=== PATIENT | female | born 1995 | race Caucasian/White ===

== ENCOUNTER → 2016-07-12 | Outpatient (CLI) | payer BC ==
[~2016-07-12] MED LIST: BCPILLS PO
== END | disposition home or self-care (01) ==
LOC: C.PAPS 15:58
PROVIDERS: ATTEND Obstetrics & Gynecology
DX: Z01.419 Encounter for gynecological examination (general) (routine) without abnormal findings (principal)

== ENCOUNTER 2016-10-15 15:14 | Emergency (ER) | payer BC ==
[~2016-10-15] VITALS: Ht 157.5 cm; Wt 111.4 kg
[2016-10-15 15:20] VITALS: TEMP 36.7; Ht 157.5 cm; Wt 111.4 kg
--- NOTE | 2016-10-15 17:18 | EMERGENCY ROOM VISIT NOTE ---
History Report prepared by Chun: Cullen Shell Under the Supervision of: Dr. Ryan Marti M.D. First contact with patient: 17:08 Chief Complaint: SWELLING TO EXTREMITY Stated Complaint: SWOLLEN LEGS, BRUISING History of Present Illness The patient is a 21 year old female who presents to the Emergency Room with complaints of worsening swelling of right lower extremity that started 3 days ago. Associated symptoms include pain with palpation. She denies pain with movement. Patient finds mild relief of her symptoms when applying hot water to extremity. The patient does not recall recent trauma to this extremity. She has not experienced similar symptoms in the past. The patient takes control daily as prescribed. Source of History: patient Onset: 3 days ago Position: leg (right) Timing: worsening Modifying Factors (Relieving): other (Hot water application) Note: Associated symptoms include pain with palpation Review of Systems See HPI for pertinent positives & negatives. A total of 10 systems reviewed and were otherwise negative. Past Medical & Surgical Medical Problems: (1) No chronic problems Family History No pertinent family history Social History Smoking Status: Never Smoker Alcohol Use: occasionally Drug Use: none Marital Status: single Housing Status: other Occupation Status: employed Current/Historical Medications Scheduled Control Pills ( Control Pills), 1 TAB PO DAILY Allergies Coded Allergies: No Known Allergies (Unverified , 10/15/16) Physical Exam Vital Signs Date Time Temp Pulse Resp B/P Pulse Ox O2 Delivery O2 Flow Rate FiO2 10/15/16 18:11 102 18 151/93 98 Room Air 10/15/16 17:19 106 16 143/97 96 Room Air 10/15/16 15:20 36.7 114 20 151/115 96 Room Air Physical Exam GENERAL: Patient is awake, alert, and in no acute distress. Patient is resting comfortably and showing no signs of anxiety EYES: The conjunctivae are clear. The pupils are round and reactive. EARS, NOSE, MOUTH AND THROAT: The nose is without any evidence of any deformity. Mucous membranes are moist tongue is midline NECK: The neck is nontender and supple. RESPIRATORY: Normal respiratory effort is noted there is no evidence of wheezing rhonchi or rales CARDIOVASCULAR: Regular rate and rhythm noted there no murmurs rubs or gallops normal S1 normal S2 GASTROINTESTINAL: The abdomen is soft. Bowel sounds are present in all quadrants. Abdomen is nontender MUSCULOSKELETAL/EXTREMITIES: There is no evidence of gross deformity full range of motion is noted in the hips and shoulders SKIN: Medial calf tenderness on right lower extremity, no signs of cellulitis noted. Pulses are symmetric. NEUROLOGIC: Patient is awake alert and oriented x3. Medical Decision & Procedures ER Provider Diagnostic Interpretation: Radiology results as stated below per my review and radiologist interpretation: ULTRASOUND RIGHT LOWER EXTREMITY VENOUS CLINICAL HISTORY: Right leg swelling. COMPARISON STUDY: No priors. TECHNIQUE: Real-time, grayscale, and color Doppler sonography of the deep veins of the right lower extremity was performed from the inguinal crease to the calf. Compression and augmentation were utilized. FINDINGS: There is no sonographic evidence of deep venous thrombosis identified in the right lower extremity. The common femoral, superficial femoral, and popliteal veins are patent and normally compressible. The greater saphenous vein and the profunda femoris vein at the junction with the common femoral vein are clear. The visualized calf veins are patent. IMPRESSION: There is no sonographic evidence of deep venous thrombosis identified in the right lower extremity. Electronically signed by: Ryan Subramanian M.D. 10/15/2016 6:05 PM Dictated Date/Time: 10/15/2016 6:05 PM ED Course 1708: The patient was evaluated in room B11B. A complete history and physical examination were performed. 1825: Upon reevaluation, the patient is resting more comfortably. I discussed the results and treatment plan with the patient. She verbalized agreement of the treatment plan. She was discharged home. Medical Decision Differential diagnosis: Etiologies such as cellulitis, abscess, MRSA infection, DVT, necrotizing fasciitis, dermatitis, drug eruption, as well as others were entertained. Nursing notes reviewed. The patient is a 21-year-old female who presented to the emergency department for an evaluation of right calf pain. The patient's pain appeared to be mostly over the medial calf. There is no defect in the muscle however the pain appear to be more consistent with musculoskeletal pain. She was concerned about a DVT. Doppler did not show any signs of venous thromboembolic disease. She was encouraged to rest and avoid any strenuous activity. She was also encouraged to continue using Motrin and Tylenol as directed for pain and follow-up with her family doctor for reevaluation. I also recommended a repeat Doppler in one week if symptoms do not improve. Impression Primary Impression: Muscle strain of right lower extremity Scribe Attestation The scribe's documentation has been prepared under my direction and personally reviewed by me in its entirety. I confirm that the note above accurately reflects all work, treatment, procedures, and medical decision making performed by me. Departure Information Dispostion Home / Self-Care Referrals Eris Dove JrDWilbreOWilber (PCP) Forms HOME CARE DOCUMENTATION FORM, IMPORTANT VISIT INFORMATION, WORK / SCHOOL INSTRUCTIONS Patient Instructions My [facility] Additional Instructions Continue all medications as prescribed. Keep your leg elevated as much as possible. Follow-up with your family for reevaluation. I would recommend a repeat ultrasound in one week if symptoms are not improved. Continue using Motrin and Tylenol as directed for pain. Problem Qualifiers Primary Impression: Muscle strain of right lower extremity Encounter type: initial encounter Qualified Codes: S86.911A - Strain of unspecified muscle(s) and tendon(s) at lower leg level, right leg, initial encounter
--- NOTE | 2016-10-15 18:07 | DIAGNOSTIC IMAGING REPORT ---
ULTRASOUND RIGHT LOWER EXTREMITY VENOUS CLINICAL HISTORY: Right leg swelling. COMPARISON STUDY: No priors. TECHNIQUE: Real-time, grayscale, and color Doppler sonography of the deep veins of the right lower extremity was performed from the inguinal crease to the calf. Compression and augmentation were utilized. FINDINGS: There is no sonographic evidence of deep venous thrombosis identified in the right lower extremity. The common femoral, superficial femoral, and popliteal veins are patent and normally compressible. The greater saphenous vein and the profunda femoris vein at the junction with the common femoral vein are clear. The visualized calf veins are patent. IMPRESSION: There is no sonographic evidence of deep venous thrombosis identified in the right lower extremity. Electronically signed by: Ryan Subramanian M.D. 10/15/2016 6:05 PM Dictated Date/Time: 10/15/2016 6:05 PM
[2016-10-15 18:11] VITALS: BP 151/93; PULSE 102; O2SAT 98
== END 2016-10-15 18:38 | disposition home or self-care (01) ==
LOC: C.EDB 15:15
DX: S86.911A Strain of unspecified muscle(s) and tendon(s) at lower leg level, right leg, initial encounter (principal); X58.XXXA Exposure to other specified factors, initial encounter; Z79.3 Long term (current) use of hormonal contraceptives

== ENCOUNTER → 2017-07-14 | Outpatient (CLI) | payer OTHER | END | disposition home or self-care (01) | LOC: C.PAPS 14:02 | PROVIDERS: ATTEND Physician Assistant | DX: Z01.419 Encounter for gynecological examination (general) (routine) without abnormal findings (principal) ==

== ENCOUNTER → 2017-07-14 | Outpatient (CLI) | payer OTHER | END | disposition home or self-care (01) | LOC: C.LABSPEC 13:33 | PROVIDERS: ATTEND Physician Assistant | DX: Z01.419 Encounter for gynecological examination (general) (routine) without abnormal findings (principal) ==